=== PATIENT | male | born 1995 | race Native Hawaiian/Other Pacific Islander ===

== ENCOUNTER 2018-01-27 21:49 | Emergency (ER) | payer SELFPAY ==
[2018-01-27 21:57] VITALS: BP 147/91
[2018-01-28] MEDS ORDERED: BOOSTRIX IM ONE (00:22)
[2018-01-28] MEDS ORDERED: MOTRIN PO ONE (00:25)
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
== END 2018-01-28 01:35 | disposition home or self-care (01) ==
LOC: ED 21:49
DX: S01.112A Laceration without foreign body of left eyelid and periocular area, initial encounter (principal); W45.8XXA Other foreign body or object entering through skin, initial encounter; Y93.89 Activity, other specified; Y99.8 Other external cause status; Y92.099 Unspecified place in other non-institutional residence as the place of occurrence of the external cause
CPT/HCPCS: 90471; 90715